=== PATIENT | male | born 1960 | race Caucasian/White ===

== ENCOUNTER 2021-02-04 11:08 | Emergency (ER) | payer OTHER ==
[~2021-02-04] VITALS: Ht 218.4 cm; Wt 88.5 kg
[~2021-02-04 11:08] MED LIST: ACET250 PO; ACET325 PO; ALBU3IS INH; Artificial Tear15 M4 BOTHEYES; BISA10S PR; CALCA500CH PO; CARB100 PO; CARBI50 PO; CLON1 PO; DULO30 PO; DULO60 PO; Dazidox10 MG PO; Epitol200 MG PO; IPRAIS NEB; LACO50TA2 PO; LEVCAR25ER PO; LORA.5 PO; MAGOXI400 PO; MELA3 PO; MELATIN3 MG PO; METO50 PO; MULVITMIND PO; Mag-Al Liquid30 ML PO; Mag-Al Plus Sus30 ML PO; OXYC10ER PO; OXYC5 PO; PANT40 PO; SENN187 PO; SODCHL1 PO; Senna8.6 M1 PO; Tears Again15 ML OP; Ventolin Soln3 ML INH; XARELTO20 MG PO
[2021-02-04] MEDS ORDERED: ATOR80 PO (11:27)
[2021-02-04] MEDS ORDERED: FOLI1 PO (11:28)
[2021-02-04] MEDS ORDERED: ESCI20 PO (11:28)
[2021-02-04] MEDS ORDERED: LAMO100 PO (11:29)
[2021-02-04] MEDS ORDERED: LEVE500 PO (11:29)
[2021-02-04] MEDS ORDERED: TRIDERM28.4 GM (11:30)
[2021-02-04] MEDS ORDERED: Acetaminophen325 M1 PO (11:31)
[2021-02-04] MEDS ORDERED: VITB2 (11:31)
[2021-02-04] MEDS ORDERED: OXYC5 PO (11:32)
[2021-02-04] MEDS ORDERED: POLYOX WSR-3011 GM MC (11:33)
== END 2021-02-04 14:44 | disposition home or self-care (01) ==
LOC: ER 11:08
DX: S09.90XA Unspecified injury of head, initial encounter (principal); S80.12XA Contusion of left lower leg, initial encounter; F10.129 Alcohol abuse with intoxication, unspecified; I69.354 Hemiplegia and hemiparesis following cerebral infarction affecting left non-dominant side; F17.200 Nicotine dependence, unspecified, uncomplicated; Z79.899 Other long term (current) drug therapy; W23.0XXA Caught, crushed, jammed, or pinched between moving objects, initial encounter
CPT/HCPCS: 70450; 73600; 99284-25; A9270

== ENCOUNTER 2021-02-12 10:52 | Emergency (ER) | payer OTHER ==
[~2021-02-12] VITALS: Ht 188 cm; Wt 86.2 kg
[~2021-02-12 10:52] MED LIST changes: +ATOR80 PO; +Acetaminophen325 M1 PO; +ESCI20 PO; +FOLI1 PO; +LAMO100 PO; +LEVE500 PO; +POLYOX WSR-3011 GM MC; +TRIDERM28.4 GM; +VITB2
[2021-02-12 12:00] LABS: Alanine Aminotransfer (ALT/SGP 42 U/L (12-78); Albumin, Blood 3.9 g/dL (3.4-5.0); Albumin/Globulin Ratio 1.1 (0.8-1.8); Alk Phos 117 U/L (50-136); Anion Gap 10 mmol/L (6-16); Aspartate Aminotrans (AST/SGOT 35 U/L (12-37); Bilirubin, Total 0.4 mg/dL (0.1-1.0); Blood Urea Nitrogen 10 mg/dL (8-24); Bun/Creatinine Ratio 15.6 (12.0-20.0); CO2, Blood 27 mmol/L (21-32); Calcium, Blood 8.1 mg/dL (8.5-10.1); Chloride, Blood 109 mmol/L (98-108); Creatinine, Blood 0.64 mg/dL (0.60-1.20); Globulin, Blood 3.5 g/dL (2.2-4.0); Glomerular Filtration Rate >60 (60-); Glucose, Blood 86 mg/dL (70-99); Potassium, Blood 3.7 mmol/L (3.5-5.5); Sodium, Blood 146 mmol/L (136-145); Total Protein, Blood 7.4 g/dL (6.4-8.2); Troponin I <0.015 ng/mL (0.000-0.040)
[2021-02-12] MEDS ORDERED: ATOR80 PO (12:27)
[2021-02-12] MEDS ORDERED: LAMO100 PO (12:28)
[2021-02-12] MEDS ORDERED: FOLI1 PO (12:28)
[2021-02-12] MEDS ORDERED: ESCI20 PO (12:28)
[2021-02-12] MEDS ORDERED: LEVETIRACETAM PO (12:28)
[2021-02-12] MEDS ORDERED: VITAMIN B-1100 M1 PO (12:29)
[2021-02-12] MEDS ORDERED: OXYC5 PO (12:29)
[2021-02-12] MEDS ORDERED: TRIDERM28.4 GM TOP (12:29)
[2021-02-12 13:59] LABS: BASOPHILS ABSOLUTE AUTO 0.06 K/mm3 (0.00-0.23); BASOPHILS PERCENT AUTO 1 % (0-2); EOSINOPHILS ABSOLUTE AUTO 0.09 K/mm3 (0.00-0.68); EOSINOPHILS PERCENT AUTO 1 % (0-6); Hematocrit 46.8 % (37.0-53.0); Hemoglobin 16.4 g/dL (13.5-17.5); IMMATURE GRAN ABSOLUTE AUTO 0.03 K/mm3 (0.00-0.10); IMMATURE GRAN PERCENT AUTO 0 % (0-1); LYMPHOCYTES ABSOLUTE AUTO 2.35 K/mm3 (0.84-5.20); LYMPHOCYTES PERCENT AUTO 23 % (21-46); MONOCYTES ABSOLUTE AUTO 0.88 K/mm3 (0.16-1.47); MONOCYTES PERCENT AUTO 9 % (4-13); Mean Corpuscular HGB 31.6 pg (26.0-34.0); Mean Corpuscular Volume 90 fL (80-100); Mean Platelet Volume 8.4 fL (9.1-12.4); NEUTROPHILS ABSOLUTE AUTO 6.66 K/mm3 (1.96-9.15); NEUTROPHILS PERCENT AUTO 66 % (41-73); Platelet Count 270 K/mm3 (150-400); RDW Coefficient Variation 12.9 % (11.7-14.2); RDW Standard Deviation 42.8 fL (35.1-46.3); Red Blood Cell Count 5.19 M/mm3 (4.30-5.90); White Blood Cell Count 10.07 K/mm3 (4.00-11.30)
== END 2021-02-12 14:35 | disposition home or self-care (01) ==
LOC: ER 10:52
PROVIDERS: Emergency Medicine
DX: F10.129 Alcohol abuse with intoxication, unspecified (principal); Y90.8 Blood alcohol level of 240 mg/100 ml or more; G40.909 Epilepsy, unspecified, not intractable, without status epilepticus; F17.210 Nicotine dependence, cigarettes, uncomplicated; Z86.73 Personal history of transient ischemic attack (TIA), and cerebral infarction without residual deficits; Z79.899 Other long term (current) drug therapy; W19.XXXA Unspecified fall, initial encounter
CPT/HCPCS: 71045; 80053; 84484; 85025; 93005; 93010; 93926; 96374; 99285-25; G0480; J1885

== ENCOUNTER 2021-02-16 16:50 | Emergency (ER) | payer OTHER ==
[~2021-02-16] VITALS: Ht 190.5 cm; Wt 86.2 kg
[~2021-02-16 16:50] MED LIST changes: +LEVETIRACETAM PO; +TRIDERM28.4 GM TOP; +VITAMIN B-1100 M1 PO
[2021-02-16 17:48] LABS: BASOPHILS ABSOLUTE AUTO 0.03 K/mm3 (0.00-0.23); BASOPHILS PERCENT AUTO 0 % (0-2); EOSINOPHILS ABSOLUTE AUTO 0.02 K/mm3 (0.00-0.68); EOSINOPHILS PERCENT AUTO 0 % (0-6); Hemoglobin 16.2 g/dL (13.5-17.5); IMMATURE GRAN ABSOLUTE AUTO 0.02 K/mm3 (0.00-0.10); IMMATURE GRAN PERCENT AUTO 0 % (0-1); LYMPHOCYTES ABSOLUTE AUTO 1.11 K/mm3 (0.84-5.20); LYMPHOCYTES PERCENT AUTO 17 % (21-46); MONOCYTES PERCENT AUTO 8 % (4-13); Mean Corpuscular HGB 31.5 pg (26.0-34.0); Mean Corpuscular HGB Conc 34.5 g/dL (31.5-36.5); Mean Corpuscular Volume 91 fL (80-100); Mean Platelet Volume 8.4 fL (9.1-12.4); NEUTROPHILS PERCENT AUTO 75 % (41-73); Platelet Count 205 K/mm3 (150-400); RDW Coefficient Variation 12.8 % (11.7-14.2); RDW Standard Deviation 42.9 fL (35.1-46.3); Red Blood Cell Count 5.15 M/mm3 (4.30-5.90); White Blood Cell Count 6.68 K/mm3 (4.00-11.30)
[2021-02-16 18:07] LABS: Alanine Aminotransfer (ALT/SGP 36 U/L (12-78); Albumin, Blood 3.9 g/dL (3.4-5.0); Alk Phos 123 U/L (50-136); Anion Gap 10 mmol/L (6-16); Aspartate Aminotrans (AST/SGOT 38 U/L (12-37); Bilirubin, Total 1.4 mg/dL (0.1-1.0); Blood Urea Nitrogen 11 mg/dL (8-24); Bun/Creatinine Ratio 14.5 (12.0-20.0); CO2, Blood 22 mmol/L (21-32); Calcium, Blood 8.5 mg/dL (8.5-10.1); Chloride, Blood 107 mmol/L (98-108); Creatinine, Blood 0.76 mg/dL (0.60-1.20); Ethanol (Alcohol), Blood, Med <3 mg/dL; Globulin, Blood 3.8 g/dL (2.2-4.0); Glomerular Filtration Rate >60 (60-); Glucose, Blood 95 mg/dL (70-99); Potassium, Blood 3.6 mmol/L (3.5-5.5); Sodium, Blood 139 mmol/L (136-145); Total Protein, Blood 7.7 g/dL (6.4-8.2)
== END 2021-02-16 20:50 | disposition home or self-care (01) ==
LOC: ER 16:50
PROVIDERS: Emergency Medicine
DX: S00.01XA Abrasion of scalp, initial encounter (principal); R44.3 Hallucinations, unspecified; M79.672 Pain in left foot; R29.898 Other symptoms and signs involving the musculoskeletal system; F17.200 Nicotine dependence, unspecified, uncomplicated; Z91.018 Allergy to other foods; Z79.899 Other long term (current) drug therapy; Z86.73 Personal history of transient ischemic attack (TIA), and cerebral infarction without residual deficits; W06.XXXA Fall from bed, initial encounter
CPT/HCPCS: 36415; 70450; 80053; 85025; 93005; 93010; 96365; 96366; 99284-25; A9270; G0480; J3411; J3475; J7042

== ENCOUNTER 2021-05-09 15:43 | Emergency (ER) | payer OTHER ==
[~2021-05-09] VITALS: Ht 177.8 cm; Wt 68.0 kg
== END 2021-05-09 16:27 | disposition home or self-care (01) ==
LOC: ER 15:43
DX: Z00.00 Encounter for general adult medical examination without abnormal findings (principal)
CPT/HCPCS: 99283

== ENCOUNTER → 2021-08-08 | Outpatient (CLI) | payer OTHER | END | disposition home or self-care (01) | LOC: LAB 17:37 → LAB SHORT 17:37 | DX: E78.5 Hyperlipidemia, unspecified (principal); F41.8 Other specified anxiety disorders; R29.6 Repeated falls | CPT/HCPCS: 87086 ==

== ENCOUNTER 2021-08-21 18:42 | Emergency (ER) | payer OTHER ==
[~2021-08-21] VITALS: Ht 188 cm; Wt 86.2 kg
[2021-08-21] MEDS ORDERED: CEPH500 PO (19:33)
== END 2021-08-21 22:21 | disposition home or self-care (01) ==
LOC: ER 18:42
DX: L03.116 Cellulitis of left lower limb (principal); Z79.899 Other long term (current) drug therapy; F17.210 Nicotine dependence, cigarettes, uncomplicated
CPT/HCPCS: 93971; 99284-25; A9270

== ENCOUNTER 2021-08-30 09:19 | Emergency (ER) | payer OTHER ==
[~2021-08-30] VITALS: Ht 188 cm; Wt 88.0 kg
[~2021-08-30 09:19] MED LIST changes: +CEPH500 PO
[2021-08-30 09:56] LABS: BASOPHILS ABSOLUTE AUTO 0.08 K/mm3 (0.00-0.23); BASOPHILS PERCENT AUTO 1 % (0-2); EOSINOPHILS ABSOLUTE AUTO 0.25 K/mm3 (0.00-0.68); EOSINOPHILS PERCENT AUTO 3 % (0-6); Hematocrit 43.9 % (37.0-53.0); Hemoglobin 14.8 g/dL (13.5-17.5); IMMATURE GRAN ABSOLUTE AUTO 0.04 K/mm3 (0.00-0.10); IMMATURE GRAN PERCENT AUTO 1 % (0-1); LYMPHOCYTES ABSOLUTE AUTO 1.19 K/mm3 (0.84-5.20); LYMPHOCYTES PERCENT AUTO 16 % (21-46); MONOCYTES ABSOLUTE AUTO 0.61 K/mm3 (0.16-1.47); MONOCYTES PERCENT AUTO 8 % (4-13); Mean Corpuscular HGB 32.2 pg (26.0-34.0); Mean Corpuscular HGB Conc 33.7 g/dL (31.5-36.5); Mean Corpuscular Volume 95 fL (80-100); Mean Platelet Volume 8.6 fL (9.1-12.4); NEUTROPHILS ABSOLUTE AUTO 5.51 K/mm3 (1.96-9.15); NEUTROPHILS PERCENT AUTO 72 % (41-73); Platelet Count 277 K/mm3 (150-400); RDW Coefficient Variation 12.6 % (11.7-14.2); White Blood Cell Count 7.68 K/mm3 (4.00-11.30)
[2021-08-30 10:20] LABS: Alanine Aminotransfer (ALT/SGP 54 U/L (12-78); Albumin, Blood 3.4 g/dL (3.4-5.0); Alk Phos 103 U/L (50-136); Anion Gap 6 mmol/L (6-16); Aspartate Aminotrans (AST/SGOT 40 U/L (12-37); Bilirubin, Total 0.3 mg/dL (0.1-1.0); Blood Urea Nitrogen 8 mg/dL (8-24); Bun/Creatinine Ratio 11.6 (12.0-20.0); CO2, Blood 27 mmol/L (21-32); Calcium, Blood 8.2 mg/dL (8.5-10.1); Chloride, Blood 109 mmol/L (98-108); Creatinine, Blood 0.69 mg/dL (0.60-1.20); Globulin, Blood 3.3 g/dL (2.2-4.0); Glomerular Filtration Rate >60 (60-); Glucose, Blood 107 mg/dL (70-99); Potassium, Blood 3.7 mmol/L (3.5-5.5); Sodium, Blood 142 mmol/L (136-145); Total Protein, Blood 6.7 g/dL (6.4-8.2)
[2021-08-30] MEDS ORDERED: CLIN300 PO (12:02)
[2021-08-30] MEDS ORDERED: OXYC5 PO (12:02)
[2021-10-31] MEDS ORDERED: CEFD300 PO (03:25)
== END 2021-08-30 12:36 | disposition home or self-care (01) ==
LOC: ER 09:19
PROVIDERS: Emergency Medicine
DX: L03.116 Cellulitis of left lower limb (principal)
CPT/HCPCS: 36415; 80053; 85025; 96365; 99283-25; A9270

== ENCOUNTER 2021-09-13 15:18 | Emergency (ER) | payer OTHER ==
[~2021-09-13] VITALS: Ht 188 cm; Wt 86.2 kg
[~2021-09-13 15:18] MED LIST changes: +CLIN300 PO
== END 2021-09-13 17:45 | disposition home or self-care (01) ==
LOC: ER 15:18
DX: M25.561 Pain in right knee (principal); G40.909 Epilepsy, unspecified, not intractable, without status epilepticus; Z91.018 Allergy to other foods; Z79.899 Other long term (current) drug therapy; F17.200 Nicotine dependence, unspecified, uncomplicated
CPT/HCPCS: 73562-RT; 99283-25

== ENCOUNTER 2021-10-22 02:15 | Emergency (ER) | payer SELFPAY ==
[~2021-10-22] VITALS: Ht 188 cm; Wt 86.2 kg
[2021-10-22] MEDS ORDERED: ASPI81CH PO (03:33)
[2021-10-22] MEDS ORDERED: MIRT15 PO (03:36)
== END 2021-10-22 06:35 | disposition home or self-care (01) ==
LOC: ER 02:15
DX: S50.02XA Contusion of left elbow, initial encounter (principal); R56.9 Unspecified convulsions; Z91.018 Allergy to other foods; Z79.899 Other long term (current) drug therapy; Z79.82 Long term (current) use of aspirin; Z86.73 Personal history of transient ischemic attack (TIA), and cerebral infarction without residual deficits; W06.XXXA Fall from bed, initial encounter
CPT/HCPCS: 73080; A9270